=== PATIENT | female | born 1990 | race Hispanic/Latino ===

== ENCOUNTER 2020-01-01 05:21 | Outpatient (CLI) | payer MEDICAID ==
--- NOTE | 2019-12-31 17:10 | Short Stay Summary ---
Short Stay Documentation Date of service: 01/01/20 Narrative H&P: 29y/o @ 13+1 weeks presents for placement of cerclage secondary to a history of incompetent cervix. The patient denies any leakage of fluid or vaginal bleeding. Patient has been reassessed/reevaluated/re-examined. H&P has been reviewed. No interval changes. - History Principal diagnosis: Incompetent cervix Past Medical History: No medical history Past Surgical History: Other (cerclage) Social history: single - Allergies and Medications Current Medications: Allergies diphenhydramine HCl [From Benadryl] Allergy (Severe, Verified 01/22/15 05:32) Hives Home Medications Medication Instructions Recorded Confirmed Last Taken Type Vitamins 200 tab PO QDAY 01/22/15 05/13/16 05/12/16 09:00 History HYDROcodone/APAP 5-325 [[place] 1 each PO Q6HR PRN #30 tablet 05/14/16 Unknown Rx 5/325] Ibuprofen [Motrin] 800 mg PO Q8HR PRN #60 tablet 05/14/16 Unknown Rx - Physical exam General appearance: no acute distress Integumentary: no rash HEENT: Atraumatic Lungs: Clear to auscultation Breasts: deferred Heart: Regular rate Gastrointestinal: normal Female Genitourinary: deferred Rectal Exam: deferred - Brief post op/procedure progress note Date of procedure: 01/01/20 Pre-op diagnosis: Incompetent cervix Post-op diagnosis: same Procedure: Amaro cerclage Anesthesia: regional Surgeon: CHIP FLORES Estimated blood loss: minimal Pathology: none Condition: stable - Hospital course Hospital course: The patient was admitted the day of surgery and underwent placement of a cerclage for incompetent cervix. Please see operative note for details of surgery. - Disposition Condition at discharge: Good - Discharge Diagnoses (1) Incompetence of cervix Status: Acute Short Stay Discharge Plan Activity: other (Pelvic rest for the duration of the ) Diet: regular Additional Instructions: Schedule follow-up in the OB clinic in the next 2 weeks Prescriptions: Indomethacin [Indocin] 25 mg PO Q8H #9 capsule HYDROcodone/APAP 5-325 [[place] 5/325] 1 each PO Q6HR PRN #20 tablet PRN Reason: Pain
[~2020-01-01 05:21] MED LIST: FAMOTIDINE 20 MG/2 ML INJ IV ONE; METOCLOPRAMIDE 10 MG/2 ML INJ IV SCH; ceFAZolin/Water 2 GM/20 ML 2 GM/20 ML SYRINGE IV NR
[2020-01-01] MEDS: LACTATED RINGERS 1,000 ML IV SCH ×2 (06:15→07:07)
[2020-01-01] MEDS ORDERED: ONDANSETRON 4 MG/2 ML INJ IV PRN (06:22)
--- NOTE | 2020-01-01 06:22 | Anesthesia Consultation ---
Anesthesia Consult and Med Hx Date of service: 01/01/20 - Airway Anesthetic Teeth Evaluation: Poor ROM Head & Neck: Adequate Mental/Hyoid Distance: Adequate Mallampati Class: Class III Intubation Access Assessment: Probably Good - Pulmonary Exam CTA: Yes - Cardiac Exam Cardiac Exam: RRR - Pre-Operative Health Status ASA Pre-Surgery Classification: ASA3 Proposed Anesthetic Plan: Spinal - Pulmonary Hx Smoking: No Hx Asthma: No Hx Respiratory Symptoms: No SOB: No COPD: No Home Oxygen Therapy: No Hx Pneumonia: No Hx Sleep Apnea: No - Cardiovascular System Hx Hypertension: No Hx Coronary Artery Disease: No Hx Heart Attack/AMI: No Hx Angina: No Hx Percutaneous Transluminal Coronary Angioplasty (PTCA): No Hx Cardia Arrhythmia: No Hx Pacemaker: No Hx Internal Defibrillator: No Hx Valvular Heart Disease: No Hx Heart Murmur: No Hx Peripheral Vascular Disease: No - Central Nervous System Hx Neuromuscular Disorder: No Hx Seizures: No CVA: No Hx Back Pain: Yes Hx Psychiatric Problems: No - Gastrointestinal Hx Ulcer: No Hx Gastroesophageal Reflux Disease: Yes - Endocrine Hx Renal Disease: No Hx End Stage Renal Disease: No Hx Cirrhosis: No Hx Liver Disease: No Hx Insulin Dependent Diabetes: No Hx Non-Insulin Dependent Diabetes: No Hx Thyroid Disease: No Hx Hypothyroidism: No Hx Hyperthyroidism: No - Hematic Hx Anemia: No Hx Sickle Cell Disease: No - Other Systems Hx Alcohol Use: No Hx Substance Use: No Hx Cancer: No Hx Obesity: Yes
--- NOTE | 2020-01-01 06:22 | Anesthesia Day of Surgery ---
Anesthesia Day of Surgery - Day of Surgery Patient Examined: Yes Patient H&P Reviewed: Yes Patient is NPO: Yes Beta Blockers: No Cardiac Clearance: No Pulmonary Clearance: No Twan's Test: N/A
[2020-01-01 06:57] LABS: Basophils % (Auto) 0.4 % (0.0-1.8); Eosinophils # (Auto) 0.2 K/mm3 (0.0-0.4); Eosinophils % (Auto) 2.2 % (0.0-4.3); Hematocrit 37.1 % (30.3-42.9); Hemoglobin 12.5 gm/dl (10.1-14.3); Lymphocytes # (Auto) 1.8 K/mm3 (1.2-5.4); Lymphocytes % (Auto) 20.1 % (13.4-35.0); Mean Corpuscular HGB Conc 34 % (30-34); Mean Corpuscular Volume 81 fl (79-97); Monocytes # (Auto) 0.5 K/mm3 (0.0-0.8); Monocytes % (Auto) 6.1 % (0.0-7.3); Platelet Count 288 K/mm3 (140-440); Red Blood Count 4.56 M/mm3 (3.65-5.03); Red Cell Distribution Width 13.4 % (13.2-15.2)
[2020-01-01] MEDS ORDERED: FAMOTIDINE 20 MG/2 ML INJ IV ONE (07:15)
[2020-01-01] MEDS ORDERED: [UNRECOGNIZED DRUG - OTHER] ONE (08:19)
[2020-01-01] MEDS ORDERED: ceFAZolin 1 GM VIAL ONE (08:20)
[2020-01-01] MEDS ORDERED: WATER FOR IRRIG STERILE 1,500 ML BOTTLE IR ONE (08:35)
--- NOTE | 2020-01-01 08:41 | Operative Report ---
Operative Report Operative Report: Date of procedure: January 01, 2020 Pre-operative diagnosis: Incompetent cervix; at 13 weeks Post-operative diagnosis: Same as above Procedure name(s): Amaro cerclage Surgeon: Viki Bethea M.D. [employer]: None Estimated blood loss: Minimal Anesthesia: Regional Findings Multiparous cervix Indication: 29-year-old -1-1-1 with a history of incompetent cervix. The patient presents for placement of a Amaro cerclage. Procedure The patient was taken to the operating room and given regional anesthesia without complication. The patient was prepped and draped in a normal sterile fashion. Patient was then placed in high lithotomy position. A sterile bivalve speculum was placed in the patient's vagina. A ring forcep was placed in on the anterior lip of the cervix. The cervix was noted to be closed and multiparous. A #1 Prolene suture was placed at 12 o'clock position on the ectocervix. A circumferential suture was placed through the cervix ending at 12:00. The knot was tied at the 12 o'clock position. There was no evidence of any active bleeding or leakage of fluid at the conclusion of the case. Doptone's were obtained prior and postprocedure.
--- NOTE | 2020-01-01 09:07 | Post Anesthesia Evaluation ---
- Post Anesthesia Evaluation Patient Participated: Yes Airway Patent: Yes Stable Respiratory Function: Yes Nausea/Vomiting: No Temp > 96.8F: Yes Pain Manageable: Yes Adequeate Hydration: Yes Anesthesia Complications: No Block Receding Appropriately: Yes Patient on Ventilator: No
[2020-01-01 09:14] VITALS: BP 115/71
== END 2020-01-01 13:00 | disposition home or self-care (01) ==
LOC: LDOR 05:21 → APU 05:28 → EDSTATUS 07:30 → LDOR 13:00
PROVIDERS: ATTEND Obstetrics & Gynecology
DX: O34.31 Maternal care for cervical incompetence, first trimester (principal); K21.9 Gastro-esophageal reflux disease without esophagitis; E66.9 Obesity, unspecified; Z79.899 Other long term (current) drug therapy; Z87.891 Personal history of nicotine dependence; Z88.8 Allergy status to other drugs, medicaments and biological substances; Z68.42 Body mass index [BMI] 45.0-49.9, adult; Z82.49 Family history of ischemic heart disease and other diseases of the circulatory system
CPT/HCPCS: 36415; 59320; 85025; 86850; 86900; 86901; J0690; J2765; J2790; J7120; J2405

== ENCOUNTER 2020-06-19 12:13 | Inpatient (IN) | payer MEDICAID ==
[2020-06-19] MEDS ORDERED: LACTATED RINGERS 1,000 ML IV SCH (13:00)
[2020-06-19 13:48] LABS: Bilirubin,Urine NEG (Negative); Blood,Urine NEG (Negative); Color,Urine Yellow (Yellow); Mucus,Urine 3+ /HPF; Protein,Urine <15 mg/dL mg/dL (Negative); Urobilinogen,Urine < 2.0 mg/dL (<2.0)
[2020-06-19 14:15] LABS: Hematocrit 31.6 % (30.3-42.9); Hemoglobin 10.8 gm/dl (10.1-14.3); Mean Corpuscular HGB Conc 34 % (30-34); Mean Corpuscular Volume 76 fl (79-97); Platelet Count 317 K/mm3 (140-440); Red Blood Count 4.15 M/mm3 (3.65-5.03); Red Cell Distribution Width 15.1 % (13.2-15.2)
[2020-06-19 14:26] LABS: Alanine Aminotransferase 6 units/L (7-56); Uric Acid 3.4 mg/dL (3.5-7.6)
[2020-06-19] MEDS ORDERED: ePHEDrine SULFATE 50 MG/1 ML INJ IV PRN (15:21)
[2020-06-19] MEDS ORDERED: PROMETHAZINE 25 MG TAB PO PRN (15:21)
[2020-06-19] MEDS ORDERED: ONDANSETRON 4 MG/2 ML INJ IV PRN (15:21)
[2020-06-19] MEDS ORDERED: LIDOCAINE (2%) 20 MG/1 ML VIAL 20 ML MDV INFILTRATI ONE (15:21)
[2020-06-19] MEDS ORDERED: NALOXONE 0.4 MG/1 ML INJ IV PRN (15:21)
[2020-06-19] MEDS ORDERED: TERBUTALINE 1 MG/1 ML INJ SUB-Q PRN (15:21)
[2020-06-19] MEDS ORDERED: MINERAL OIL 30 ML ORAL LIQD PO PRN (15:21)
[2020-06-19] MEDS ORDERED: BUTORPHANOL 2 MG/1 ML INJ IV PRN ×2 (15:21)
[2020-06-19] MEDS ORDERED: ACETAMINOPHEN 325 MG TAB PO PRN (15:21)
[2020-06-19] MEDS ORDERED: fentaNYL 100 MCG/2 ML INJ IV PRN (15:21)
[2020-06-19] MEDS ORDERED: OXYTOCIN 20 UNIT/1000ML DRIP 20 UNITS/1,000 ML BAG IV SCH (16:00)
[2020-06-19] MEDS ORDERED: AMPICILLIN/NS 2 GM/100 ML 2 GM/100 ML BAG IV ONE (16:21)
--- NOTE | 2020-06-19 18:00 | History and Physical Report ---
History of Present Illness Date of examination: 06/19/20 Date of admission: 06/19/20 15:33 Chief complaint: Sent from [facility] for elevated BP History of present illness: Pt is a 29 yo at 37w3d EGA who presents from the [facility] office, where she was found to have elevated BP. She denies SEGURA, LOF, vaginal bleeding, contractions, scotomata, RUQ pain, face/hand swelling. She reports positive movement. She has received care with [facility], co- managed with [facility]. Her course has been complicated by cerclage placement (removed 06/12), morbid obesity, glucose intolerance, and Rh negative status s/p Rhogam injection. She is GBS positive. 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 PULLER History: chlamydia (remote from ), gonorrhea (remote from ) Family/Genetic History: diabetes, hypertension Social history: no significant social history - Obstetrical History Expected Date of Delivery: 07/07/20 (by 12 wk US not c/w LMP) Actual Gestation: 37 Week(s) 3 Day(s) : 5 Para: 1 Hx # Term Pregnancies: 1 Spontaneous Abortions: 3 (one 17 week delivery due to cervical insufficiency) Number of Living Children: 1 Medications and Allergies Allergies Allergy/AdvReac Type Severity Reaction Status Date / Time diphenhydramine HCl Allergy Severe Hives Ver[facility] 01/22/15 05:32 [facility] Home Medications Medication Instructions Recorded Confirmed Last Taken Type Vitamins 200 tab PO QDAY 01/22/15 05/13/16 05/12/16 09:00 History HYDROcodone/APAP 5-325 [[place] 1 each PO Q6HR PRN #30 tablet 05/14/16 Unknown Rx 5/325] Ibuprofen [Motrin] 800 mg PO Q8HR PRN #60 tablet 05/14/16 Unknown Rx HYDROcodone/APAP 5-325 [[place] 1 each PO Q6HR PRN #20 tablet 01/01/20 Unknown Rx 5/325] Indomethacin [Indocin] 25 mg PO Q8H #9 capsule 01/01/20 Unknown Rx Active Meds: Active Medications Acetaminophen (Tylenol) 650 mg PO Q4H PRN PRN Reason: Pain, Mild (1-3) Butorphanol Tartrate (Stadol) 1 mg IV Q2H PRN PRN Reason: Pain, Moderate(4-6) LABOR PAIN Butorphanol Tartrate (Stadol) 2 mg IV Q2H PRN PRN Reason: Pain , Severe (7-10) Ephedrine Sulfate (Ephedrine Sulfate) 10 mg IV Q2M PRN PRN Reason: Hypotension Fentanyl (Sublimaze) 100 mcg IV Q2H PRN PRN Reason: Pain,Severe (7-10) LABOR PAIN Lactated Ringer's (Lactated Ringers) 1,000 mls @ 125 mls/hr IV DIRECT LEYDI Lactated Ringer's (Lactated Ringers) 1,000 mls @ 125 mls/hr IV DIRECT LEYDI Oxytocin/Sodium Chloride (Pitocin/Ns 20 Unit/1000ml Drip) 20 units in 1,000 mls @ 125 mls/hr IV DIRECT LEYDI Ampicillin Sodium (Ampicillin/Ns 1 Gm/50 Ml) 1 gm in 50 mls @ 100 mls/hr IV Q4H LEYDI; Protocol Mineral Oil (Mineral Oil) 30 ml PO QHS PRN PRN Reason: Constipation Naloxone HCl (Naloxone) 0.1 mg IV Q2MIN PRN PRN Reason: Res Rate </= 8 or 02 SAT < 92% Ondansetron HCl (Zofran) 4 mg IV Q8H PRN PRN Reason: Nausea And Vomiting Promethazine HCl (Phenergan) 25 mg PO Q6H PRN PRN Reason: Nausea And Vomiting Terbutaline Sulfate (Brethine) 0.25 mg SUB-Q ONCE PRN PRN Reason: Hyperstimulation/Hypertonicity Review of Systems All systems: negative Genitourinary: no vaginal bleeding, no leakage of fluid, no contractions - Vital Signs Vital signs: Vital Signs Pulse BP 110 H 112/67 05/02/20 12:33 05/02/20 12:33 Temp Pulse Resp BP Pulse Ox 98.3 F 103 H 20 136/82 96 06/19/20 12:52 06/19/20 17:29 06/19/20 12:52 06/19/20 17:17 06/19/20 17:29 - Physical Exam Lungs: Positive: Normal air movement Abdomen: Positive: soft Genitourinary (Female): Positive: normal external genitalia Uterus: Positive: enlarged (gravid, EFW 6lb) Anus/Rectum: Positive: normal perianal skin - Obstetrical FHR: category 1 Uterine Contraction Monitor Mode: External Cervical Dilatation: 0.5 Cervical Effacement Percentage: 0 station: -3 Uterine Contraction Pattern: Absent Results Result Diagrams: 06/19/20 Unknown 06/19/20 Unknown Abnormal lab results 06/19/20 06/19/20 06/19/20 Range/Units 12:00 Unknown Unknown WBC 11.6 H (4.5-11.0) K/mm3 MCV 76 L (79-97) fl MCH 26 L (28-32) pg Creatinine 0.3 L (0.6-1.2) mg/dL Uric Acid 3.4 L (3.5-7.6) mg/dL ALT 6 L (7-56) units/L Urine WBC (Auto) 16.0 H (0.0-6.0) /HPF All other labs normal. Assessment and Plan A 29 yo at 37w2d EGA Gestational hypertension GBS positive, membranes intact Morbid obesity H/o cerclage this , removed last week P: Admit to L&D for induction of labor- Cervidil PIH labs Ampicillin prophylaxis in active labor Closely monitor clinical status Anticipate
[2020-06-19] MEDS ORDERED: AMPICILLIN/NS 1 GM/50 ML 1 GM/50 ML BAG IV SCH (19:23)
[2020-06-19] MEDS ORDERED: DEXMEDETOMIDINE 200 MCG/2 ML VIAL IV ONE (19:37)
[2020-06-19] MEDS ORDERED: DINOPROSTONE 10 MG VAG SUPP VG ONE (20:00)
[2020-06-19 20:12] LABS: Hematocrit 31.1 % (30.3-42.9); Hemoglobin 10.3 gm/dl (10.1-14.3); Mean Corpuscular HGB Conc 33 % (30-34); Mean Corpuscular Volume 77 fl (79-97); Platelet Count 328 K/mm3 (140-440); Red Blood Count 4.06 M/mm3 (3.65-5.03); Red Cell Distribution Width 15.1 % (13.2-15.2)
[2020-06-20] MEDS ORDERED: OXYTOCIN DRIP 30 UNITS/500 ML BAG IV SCH (08:30)
[2020-06-20] MEDS ORDERED: AMPICILLIN/NS 2 GM/100 ML 2 GM/100 ML BAG IV ONE (08:30)
[2020-06-20] MEDS: LACTATED RINGERS 1,000 ML IV SCH (13:02)
[2020-06-20] MEDS: AMPICILLIN/NS 1 GM/50 ML 1 GM/50 ML BAG IV SCH ×2 (13:02→16:48)
--- NOTE | 2020-06-20 17:06 | Progress Note ---
Objective - Vital Signs Latest vital signs: Vital Signs Temp Pulse Resp BP BP Pulse Ox 06/20/20 16:45 98.1 F 06/20/20 16:43 100 H 159/87 06/20/20 16:09 87 161/84 06/20/20 13:10 85 151/66 06/20/20 12:10 93 H 160/71 06/20/20 11:10 93 H 130/71 06/20/20 11:09 98.3 F 91 H 20 130/71 06/20/20 08:50 86 97 06/20/20 08:45 86 97 06/20/20 08:40 89 96 06/20/20 08:35 84 120/68 99 06/20/20 08:30 100 H 98 06/20/20 08:25 95 H 99 06/20/20 08:20 102 H 98 06/20/20 08:15 99 H 99 06/20/20 08:10 85 96 06/20/20 08:05 89 95 06/20/20 08:00 102 H 98 06/20/20 07:55 100 H 98 06/20/20 07:50 101 H 97 06/20/20 07:45 83 97 06/20/20 07:42 96 H 93 06/20/20 07:40 105 H 100 06/20/20 07:35 112 H 97 06/20/20 07:31 98.0 F 103 H 12 142/78 06/20/20 07:20 82 142/78 06/20/20 06:49 82 139/71 06/20/20 06:19 91 H 149/80 06/20/20 05:49 97 H 144/85 06/20/20 05:38 108 H 142/89 06/20/20 05:37 98.9 F 105 H 18 142/89 06/20/20 05:19 90 140/88 06/20/20 04:50 96 H 137/87 06/20/20 04:19 89 144/93 06/20/20 03:49 83 173/92 06/20/20 03:26 98.2 F 18 06/20/20 03:19 83 145/90 06/20/20 02:50 82 164/90 06/20/20 02:19 83 132/76 06/20/20 01:50 89 117/67 06/20/20 01:19 89 110/70 06/20/20 00:51 91 H 115/78 06/20/20 00:19 96 H 124/67 06/19/20 23:30 98.1 F 20 06/19/20 23:19 88 125/62 06/19/20 22:49 110 H 143/101 06/19/20 22:19 103 H 144/82 06/19/20 21:49 99 H 136/78 06/19/20 21:19 90 142/86 06/19/20 18:45 98.1 F 06/19/20 17:29 103 H 96 06/19/20 17:24 107 H 97 06/19/20 17:19 98 H 97 06/19/20 17:18 93 H 94 06/19/20 17:17 95 H 136/82 06/19/20 17:14 109 H 96 06/19/20 17:11 118 H 92 06/19/20 17:09 114 H 95 Intake and Output 06/20/20 06/20/20 06/20/20 06:59 14:59 22:59 Intake Total 76.666 9.3 Balance 76.666 9.3 Intake: IV 76.666 9.3 AMPICILLIN/NS 1 GM/50 ML 50 1 gm In 50 ml @ 100 mls/ hr IV Q4H [facility] Rx#: [id number] PITOCin/NS 30 UNIT/500ML 26.666 9.3 30 units In 500 ml @ 2 mls/hr IV TITR [facility] Rx#: [id number] - Labs Labs: Abnormal lab results 06/19/20 Range/Units 19:30 WBC 13.0 H (4.5-11.0) K/mm3 MCV 77 L (79-97) fl MCH 25 L (28-32) pg
--- NOTE | 2020-06-20 17:06 | Progress Note ---
Assessment and Plan A: IUP at 37w4d Preeclampsia with severe features Morbid Obesity Cervical Incompetence s/p cerclage; removed on 06/12/20 Glucose Intolerance Rh Negative status GBS Positive Undesired Fertility P: Continue induction of labor Ampicillin for GBS prophylaxis Subjective - Subjective Date of service: 06/20/20 Principal diagnosis: Preclampsia with severe features, morbid obesity, cervical incompetence Interval history: Late entry. Pt frustrated with induction process. Otherwise no new complaints. Patient reports: contractions, no new complaints, no loss of fluid, no vaginal bleeding Objective - Vital Signs Vital Signs: Vital Signs - 12hr 06/20/20 06/20/20 06/20/20 05:19 05:37 05:38 Temperature 98.9 F Pulse Rate 90 105 H 108 H Respiratory 18 Rate Blood Pressure 140/88 142/89 Blood Pressure 142/89 [Right] O2 Sat by Pulse Oximetry 06/20/20 06/20/20 06/20/20 05:49 06:19 06:49 Temperature Pulse Rate 97 H 91 H 82 Respiratory Rate Blood Pressure 144/85 149/80 139/71 Blood Pressure [Right] O2 Sat by Pulse Oximetry 06/20/20 06/20/20 06/20/20 07:20 07:31 07:35 Temperature 98.0 F Pulse Rate 82 103 H 112 H Respiratory 12 Rate Blood Pressure 142/78 Blood Pressure 142/78 [Right] O2 Sat by Pulse 97 Oximetry 06/20/20 06/20/20 06/20/20 07:40 07:42 07:45 Temperature Pulse Rate 105 H 96 H 83 Respiratory Rate Blood Pressure Blood Pressure [Right] O2 Sat by Pulse 100 93 97 Oximetry 06/20/20 06/20/20 06/20/20 07:50 07:55 08:00 Temperature Pulse Rate 101 H 100 H 102 H Respiratory Rate Blood Pressure Blood Pressure [Right] O2 Sat by Pulse 97 98 98 Oximetry 06/20/20 06/20/20 06/20/20 08:05 08:10 08:15 Temperature Pulse Rate 89 85 99 H Respiratory Rate Blood Pressure Blood Pressure [Right] O2 Sat by Pulse 95 96 99 Oximetry 06/20/20 06/20/20 06/20/20 08:20 08:25 08:30 Temperature Pulse Rate 102 H 95 H 100 H Respiratory Rate Blood Pressure Blood Pressure [Right] O2 Sat by Pulse 98 99 98 Oximetry 06/20/20 06/20/20 06/20/20 08:35 08:40 08:45 Temperature Pulse Rate 84 89 86 Respiratory Rate Blood Pressure 120/68 Blood Pressure [Right] O2 Sat by Pulse 99 96 97 Oximetry 06/20/20 06/20/20 06/20/20 08:50 11:09 11:10 Temperature 98.3 F Pulse Rate 86 91 H 93 H Respiratory 20 Rate Blood Pressure 130/71 Blood Pressure 130/71 [Right] O2 Sat by Pulse 97 Oximetry 06/20/20 06/20/20 06/20/20 12:10 13:10 16:09 Temperature Pulse Rate 93 H 85 87 Respiratory Rate Blood Pressure 160/71 151/66 161/84 Blood Pressure [Right] O2 Sat by Pulse Oximetry 06/20/20 06/20/20 16:43 16:45 Temperature 98.1 F Pulse Rate 100 H Respiratory Rate Blood Pressure 159/87 Blood Pressure [Right] O2 Sat by Pulse Oximetry - Exam Breasts: deferred Abdomen: Present: soft (obese, gravid ) FHR: auscultation normal Uterine Contraction Monitor Mode: External Cervical Dilatation: 1 Cervical Effacement Percentage: 50 station: -3 Uterine Contraction Pattern: Irregular Uterine Tone Measurement Phase: Resting Uterine Contraction Intensity: Mild Extremities: edema (trace ) - Labs Labs: Abnormal Labs 06/19/20 06/19/20 06/19/20 12:00 19:30 Unknown WBC 13.0 H 11.6 H MCV 77 L 76 L MCH 25 L 26 L Creatinine Uric Acid ALT Urine WBC (Auto) 16.0 H 06/19/20 Unknown WBC MCV MCH Creatinine 0.3 L Uric Acid 3.4 L ALT 6 L Urine WBC (Auto) Laboratory Results - last 24 hr 06/19/20 06/19/20 06/20/20 17:40 19:30 09:51 WBC 13.0 H RBC 4.06 Hgb 10.3 Hct 31.1 MCV 77 L MCH 25 L MCHC 33 RDW 15.1 Plt Count 328 Coronavirus (PCR) Negative Blood Type B NEGATIVE Antibody Screen Negative
[2020-06-20] MEDS ORDERED: ONDANSETRON 4 MG/2 ML INJ IV PRN (20:34)
[2020-06-20] MEDS ORDERED: NalbUPHINE 10 MG/1 ML INJ IV PRN (20:34)
[2020-06-20] MEDS ORDERED: DEXMEDETOMIDINE 200 MCG/2 ML VIAL IV ONE (20:39)
[2020-06-20] MEDS ORDERED: fentaNYL-BUPIV 2 MCG/ML-0.125% 200 MCG/100 ML BAG EPIDURAL SCH (21:00)
--- NOTE | 2020-06-20 21:01 | Anesthesia Consultation ---
Anesthesia Consult and Med Hx Date of service: 06/20/20 - Airway Anesthetic Teeth Evaluation: Good ROM Head & Neck: Adequate Mental/Hyoid Distance: Adequate Mallampati Class: Class III Intubation Access Assessment: Possibly Difficult - Pulmonary Exam CTA: Yes - Cardiac Exam Cardiac Exam: RRR - Pre-Operative Health Status ASA Pre-Surgery Classification: ASA2 Proposed Anesthetic Plan: Epidural - Pulmonary Hx Smoking: No Hx Asthma: No Hx Respiratory Symptoms: No SOB: No COPD: No Hx Pneumonia: No Hx Sleep Apnea: No - Cardiovascular System Hx Hypertension: No Hx Coronary Artery Disease: No Hx Heart Attack/AMI: No Hx Angina: No Hx Percutaneous Transluminal Coronary Angioplasty (PTCA): No Hx Cardia Arrhythmia: No Hx Pacemaker: No Hx Internal Defibrillator: No Hx Valvular Heart Disease: No Hx Heart Murmur: No Hx Peripheral Vascular Disease: No - Central Nervous System Hx Neuromuscular Disorder: No Hx Seizures: No CVA: No Hx Back Pain: Yes Hx Psychiatric Problems: No - Gastrointestinal Hx Ulcer: No Hx Gastroesophageal Reflux Disease: Yes - Endocrine Hx Renal Disease: No Hx End Stage Renal Disease: No Hx Cirrhosis: No Hx Liver Disease: No Hx Insulin Dependent Diabetes: No Hx Non-Insulin Dependent Diabetes: No Hx Thyroid Disease: No Hx Hypothyroidism: No Hx Hyperthyroidism: No - Hematic Hx Anemia: No Hx Sickle Cell Disease: No - Other Systems Hx Alcohol Use: No Hx Substance Use: No Hx Cancer: No Hx Obesity: Yes
--- NOTE | 2020-06-20 21:02 | Progress Note ---
Labor Epidural - Labor Epidural Start Time: 20:43 Stop Time: 20:55 Performed by:: ROMEL RBUIN ([facility]) Procedure: Patient is requesting a laboring epidural for laboring pain. Patient IDed, H&P reviewed, all questions and concerns were answered, and consent was signed. Timeout was performed at bedside. Patient in sitting position. Sterile prep and drape was performed. 3ml of 1% lidocaine skin wheal at L[3]- L [4]. 18-gauge Touhy epidural needle was advanced to loss of resistance with air technique. Negative CSF negative blood. Epidural catheter advanced to [16] centimeters. [-] Aspiration [-] test dose. Sterile dressing applied. Patient tolerated procedure.
[2020-06-21] MEDS: AMPICILLIN/NS 1 GM/50 ML 1 GM/50 ML BAG IV SCH (00:04)
[2020-06-21] MEDS: LACTATED RINGERS 1,000 ML IV SCH (00:25)
--- NOTE | 2020-06-21 01:22 | Event Note ---
Date: 06/21/20 Pt comfortable with epidural. Category II tracing. SVE: /-2. AROM- scant, clear fluid. IUPC placed. Continue to monitor clinical status closely.
[2020-06-21] MEDS ORDERED: METOCLOPRAMIDE 10 MG/2 ML INJ ONE (01:56)
[2020-06-21] MEDS ORDERED: FAMOTIDINE 20 MG/2 ML INJ IV ONE (01:56)
[2020-06-21] MEDS ORDERED: BICITRA ORAL LIQD 30ML ONE (01:56)
[2020-06-21] MEDS ORDERED: KETOROLAC 30 MG/1 ML INJ ONE (02:09)
[2020-06-21] MEDS ORDERED: OXYTOCIN 10 UNIT/1 ML INJ ONE (02:09)
[2020-06-21] MEDS ORDERED: LIDOCAINE 2%/EPINEPHRINE 1:200,000 VIAL (20 ML) INFILTRATI ONE (02:09)
[2020-06-21] MEDS ORDERED: ONDANSETRON 4 MG/2 ML INJ ONE (02:09)
[2020-06-21] MEDS ORDERED: ceFAZolin/STERILE WATER 2 GM/20 ML SYRINGE IV ONE (02:33)
[2020-06-21] MEDS ORDERED: SODIUM CHLORIDE 0.9% IRR 1,500 ML BOTTLE IR ONE (02:33)
[2020-06-21] MEDS ORDERED: PHENYLEPHRINE/NS 1,000 MCG/10 ML SYRINGE (OR USE) IV ONE (02:48)
--- NOTE | 2020-06-21 03:04 | Anesthesia Day of Surgery ---
Anesthesia Day of Surgery - Day of Surgery Patient Examined: Yes Patient H&P Reviewed: Yes Patient is NPO: Yes Beta Blockers: No Cardiac Clearance: No Pulmonary Clearance: No Twan's Test: N/A
[2020-06-21] MEDS ORDERED: fentaNYL 100 MCG/2 ML INJ ONE (03:20)
[2020-06-21] MEDS ORDERED: HYDROmorphone 1 MG/1 ML INJ IV PRN (04:22)
[2020-06-21] MEDS ORDERED: ONDANSETRON 4 MG/2 ML INJ IV PRN (04:22)
[2020-06-21] MEDS ORDERED: PROMETHAZINE 25 MG TAB PO PRN (04:22)
[2020-06-21] MEDS ORDERED: PROMETHAZINE 25 MG RECT SUPP PR PRN (04:22)
--- NOTE | 2020-06-21 04:30 | Procedure Note ---
OB Delivery Note - Delivery Date of Delivery: 06/21/20 Surgeon: BRYAN JOSEPH Estimated blood loss: other (900 mL) - Section Preop diagnosis: nonreassuring FHR tracing, desires sterilization Postop diagnosis: same section procedure: section, primary low transverse, bilateral tubal ligation Disposition: PACU Complications: none Narrative: Please see delivery note. - Infant A at 1 minute: 1 at 5 minutes: 1 Infant Gender: Male (Apgars [birth year] weight 2480g (5lb 0.7 oz) @ 0252 am)
--- NOTE | 2020-06-21 04:31 | Operative Report ---
Operative Report Operative Report: Date of procedure: June 21, 2020 Preoperative diagnosis: 1) IUP at 37w5d 2) Nonreassuring status- re petitive variable decelerations 3) Morbid Obesity BMI 47 4) Gestational Hypertension 5) Undesired Fertility Postoperative diagnosis: Same Procedure: 1) Primary low transverse section 2) Bilateral tubal ligation via modified English method Surgeon: Usha Seymour M.D. Anesthesia: Regional Findings: 1) Viable male , Apgars 1,1,6 and 7, weight 2480g, (5lb 0.7 oz) in cephalic presentation. Occiput posterior position. 2) Very night true knot in the umbilical cord 3) Normal appearing ovaries and tubes Estimated blood loss: 900 mL Urine output: 30 mL, clear at the end of the procedure Drains: Morton to gravity Specimens: Tubal segments, placenta to pathology Complications: Counts correct x 3 Disposition: Stable to PACU Indication for procedure: Pt is a 29 year old female at 37w5d was admitted for induction of labor secondary to gestational hypertension. She progressed to 5 cm, but began to have repetitive variable decelerations. The decision was made to proceed to section. She does not desire future fertility. Operation in Detail: After the risks, benefits, alternatives and complications were explained to the patient she gave informed consent for the procedure. She was subsequently taken to the operating room where regional anesthesia was noted to be adequate. She was then placed in the dorsal supine position with leftward tilt and prepped and draped in a normal sterile fashion. heart tones were noted inthe 110s prior to incision. A timeout was performed. A Pfannenstiel skin incision was made with the knife and carried down to the layer of the fascia with the Bovie. The fascia was incised in the midline and the fascial incision was extended bilaterally with the Bovie. The fascial incision was then stretched. The rectus muscles were then in the midline and partially transected for adequate visualization. The peritoneum was then entered sharply between two Arline clamps. The peritoneal incision was extended with good visualization of the bladder. The peritoneal incision was then stretched. An Eamon retractor was placed. The bladder blade was placed. The vesicouterine peritoneum was grasped with smooth pick ups and incised with Metzenbaum scissors. A bladder flap was created and the bladder blade was replaced. A transverse incision was made with a knife in the lower uterine segment. The hysterotomy was stretched. The head was delivered without difficulty followed by delivery of the shoulders and body. was bulb suctioned at delivery. The cord was clamped and cut and the was handed to NICU staff in attendance. Cord blood was collected. A tight true knot was noted in the umbilical cord. The placenta was then delivered manually. The uterus was exteriorized and cleared of all clots and debris. The hysterotomy was then reapproximated with 0 Vicryl in a running locked fashion. A second suture was used in an imbricated fashion. An extension into the lower uterine segment was reapproximated with 0 Vicryl in a running locked fashion. The hysterotomy was inspected and hemostasis was noted. Attention was then turned to the tubal ligation. The left tube was identified, grasped with a wanda and followed out to the fimbriae. The tube was suture ligated via a modified English method using 0 chromic suture. The intervening tubal segment was sent to pathology. The right tube was then identified, followed out to the fimbriae and suture ligated via a modified English method using 0 chromic suture. Hemostasis was noted. Surgicel was placed over the t ubal ostia bilaterally. The gutters were irrigated and cleared of all clots and debris. The hysterotomy was again inspected and noted to be hemostatic. Surgicel was placed over the hysterotomy. The uterus was returned to the peritoneal cavity. The Eamon retractor was removed. The peritoneum was reapproximated with 2-0 Vicryl in a running fashion incorporating the rectus muscles. Surgicel was placed over the rectus muscles. The fascia was reapproximated with 0-Vicryl in a running fashion. The subcutaneous tissue was reapproximated with 3-0 Vicryl in a running fashion. The skin was reapproximated with 4-0 Vicryl in a subcuticular fashion. The incision was then covered with steristrips and a pressure dressing. The procedure was then ended. The patient tolerated the procedure well and was taken to the PACU in stable condition. All instrument, lap, and needle counts were correct 3.
[2020-06-21] MEDS ORDERED: BICITRA ORAL LIQD 30ML PO ONE (05:59)
[2020-06-21] MEDS ORDERED: METOCLOPRAMIDE 10 MG/2 ML INJ IV NR (06:00)
[2020-06-21] MEDS ORDERED: LANOLIN/ZINC/DIMETHICONE (LANSINOH) 7 GM TP PRN (06:19)
[2020-06-21] MEDS ORDERED: MORPHINE 4 MG/1 ML INJ IV PRN (06:19)
[2020-06-21] MEDS ORDERED: OXYTOCIN 20 UNIT/1000ML DRIP 20 UNITS/1,000 ML BAG IV SCH (06:19)
[2020-06-21] MEDS ORDERED: NALOXONE 0.4 MG/1 ML INJ IV PRN (06:19)
[2020-06-21] MEDS ORDERED: WITCH HAZEL/ GLYCERIN PAD TP PRN (06:19)
[2020-06-21] MEDS ORDERED: D5W/LACTATED RINGERS 1,000 ML IV SCH (06:19)
[2020-06-21] MEDS ORDERED: SIMETHICONE 80 MG CHEW TAB PO PRN (06:19)
[2020-06-21] MEDS: KETOROLAC 30 MG/1 ML INJ IV SCH ×3 (07:17→18:28)
[2020-06-21] MEDS: FERROUS SULFATE 325 MG TAB PO SCH (09:21)
[2020-06-21] MEDS: FAMOTIDINE 20 MG/2 ML INJ IV SCH ×2 (09:21→22:03)
[2020-06-21] MEDS: ceFAZolin/NS 1 GM/50 ML 1 GM/50 ML BAG IV SCH ×2 (09:21→18:28)
[2020-06-21] MEDS: oxyCODONE /ACETAMINOPHEN 5-325MG TAB PO PRN ×3 (09:38→22:01)
[2020-06-21 19:21] LABS: Hematocrit 25.9 % (30.3-42.9); Hemoglobin 8.4 gm/dl (10.1-14.3)
[2020-06-22] MEDS: KETOROLAC 30 MG/1 ML INJ IV SCH (01:05)
[2020-06-22] MEDS: oxyCODONE /ACETAMINOPHEN 5-325MG TAB PO PRN ×3 (04:51→17:12)
[2020-06-22] MEDS ORDERED: MEASLES, MUMPS & RUBELLA 12,500 UNIT/0.5 ML VACCINE SUB-Q ONE (06:00)
[2020-06-22] MEDS ORDERED: DIPHtheria,PERTUSSIS(ACELL),TETANUS VACCINE/PF 0.5 ML VIAL IM ONE (06:00)
--- NOTE | 2020-06-22 08:29 | Progress Note ---
Assessment and Plan A: POD#1 s/p primary section for gestational hypertension at term Morbid Obesity P: Continue routine postop care. Monitor for progression to preeclampsia and need for magnesium sulfate. Subjective - Subjective Date of service: 06/22/20 Principal diagnosis: Gestational HTN , morbid obesity, cervical incompetence Interval history: No overnight events. Baby doing well in NICU. + flatus. Patient reports: appetite normal, voiding normally, pain well controlled, flatus, ambulating normally, no bowel movement [place]: doing well, in NICU Objective - Vital Signs Latest vital signs: Vital Signs Temp Pulse Resp BP BP Pulse Ox 06/22/20 05:53 86 138/63 96 06/22/20 01:00 98.3 F 92 H 20 137/64 98 06/21/20 21:25 98.3 F 99 H 20 144/75 98 Intake and Output 06/21/20 06/22/20 06/22/20 22:59 06:59 14:59 Intake Total 360 Output Total 1000 400 Balance -1000 -40 Intake: Oral 360 Output: Urine 1000 400 Indwelling Catheter 400 Void 600 400 Other: Total, Intake Amount 120 Total, Output Amount 300 400 # Voids Void 2 1 - Exam Breasts: Present: deferred Abdomen: Present: soft (obese) Uterus: Present: fundal height at umbilicus Extremities: Present: edema (trace) Incision: Present: dressed - Labs Labs: Abnormal lab results 06/21/20 Range/Units 18:42 Hgb 8.4 L (10.1-14.3) gm/dl Hct 25.9 L (30.3-42.9) %
[2020-06-22] MEDS: FERROUS SULFATE 325 MG TAB PO SCH (11:22)
[2020-06-22] MEDS: FAMOTIDINE 20 MG/2 ML INJ IV SCH ×2 (11:22→21:27)
[2020-06-23] MEDS: oxyCODONE /ACETAMINOPHEN 5-325MG TAB PO PRN (00:54)
[2020-06-23] MEDS: FERROUS SULFATE 325 MG TAB PO SCH (09:34)
[2020-06-23] MEDS: MAGNESIUM HYDROXIDE (MOM) ORAL LIQD UDC PO SCH (09:35)
[2020-06-23] MEDS: FAMOTIDINE 20 MG/2 ML INJ IV SCH ×2 (09:35→21:15)
[2020-06-23] MEDS: IBUPROFEN 800 MG TAB PO PRN ×2 (09:36→21:15)
--- NOTE | 2020-06-23 10:15 | Progress Note ---
Assessment and Plan A: POD#2 s/p primary section Preeclampsia with severe features Morbid Obesity P: Transfer to labor and delivery for magnesium sulfate for seizure prophylaxis Continue routine postop care. Subjective - Subjective Date of service: 06/23/20 Principal diagnosis: Preeclampsia with severe features , morbid obesity, cervical incompetence Interval history: Pt with blood pressures in the severe range overnight. Denies headache, blurry vision, scotomata presently. Otherwise no complaints. Patient reports: appetite normal, voiding normally, pain well controlled, flat us, ambulating normally, no bowel movement : in NICU Objective - Vital Signs Latest vital signs: Vital Signs Temp Pulse Resp BP BP Pulse Ox 06/23/20 08:32 98.1 F 95 H 20 145/79 06/23/20 01:50 93 H 149/85 06/23/20 01:14 98.2 F 96 H 20 161/90 99 Intake and Output 06/22/20 06/23/20 06/23/20 22:59 06:59 14:59 Intake Total 600 240 240 Balance 600 240 240 Intake: Oral 240 240 Intake, Free Water 360 240 Other: Total, Intake Amount 240 240 # Voids Void 2 1 - Exam Breasts: Present: deferred Abdomen: Present: soft (obese ) Uterus: Present: fundal height below umbilicus Extremities: Present: edema (trace) Incision: Present: intact
[2020-06-23] MEDS ORDERED: hydrALAZINE 20 MG/1 ML INJ IV PRN (15:19)
[2020-06-23] MEDS ORDERED: MAGNESIUM SULFATE 4 GM/100 ML BAG IV ONE (15:19)
[2020-06-23] MEDS ORDERED: MAGNESIUM SULFATE 40GM/1000ML 40 GM/1,000 ML BAG IV ONE (15:24)
[2020-06-23] MEDS ORDERED: CALCIUM GLUCONATE 1000 MG/10 ML INJ IV PRN (15:30)
[2020-06-23] MEDS: LACTATED RINGERS 1,000 ML IV SCH (15:47)
[2020-06-23] MEDS: MAGNESIUM SULFATE 40GM/1000ML 40 GM/1,000 ML BAG IV SCH (16:22)
[2020-06-24] MEDS: MAGNESIUM HYDROXIDE (MOM) ORAL LIQD UDC PO SCH ×5 (00:38→15:26)
[2020-06-24] MEDS: LACTATED RINGERS 1,000 ML IV SCH (05:10)
[2020-06-24] MEDS: IBUPROFEN 800 MG TAB PO PRN ×2 (05:38→11:12)
--- NOTE | 2020-06-24 08:01 | Progress Note ---
Assessment and Plan - Patient Problems (1) Preeclampsia Current Visit: Yes Status: Acute Plan to address problem: Patient doing well Subjective - Subjective Date of service: 06/24/20 Principal diagnosis: Preeclampsia with severe features , morbid obesity, cervical incompetence Interval history: Patient without any significant complaints. She is scheduled to complete her magnesium sulfate therapy this afternoon. She states that her pain is well controlled. Patient reports: appetite normal, pain well controlled : in NICU Objective - Vital Signs Latest vital signs: Vital Signs Temp Pulse Resp BP BP BP 06/24/20 07:41 90 143/71 06/24/20 07:10 97.7 F 86 20 141/66 06/24/20 06:41 82 129/68 06/24/20 06:11 78 146/71 06/24/20 05:41 84 140/67 06/24/20 05:11 83 136/71 06/24/20 04:41 82 137/64 06/24/20 04:11 86 155/72 06/24/20 03:41 90 142/68 06/24/20 03:11 112 H 136/88 06/24/20 02:41 91 H 136/63 06/24/20 02:11 111 H 161/95 06/24/20 01:40 103 H 157/79 06/24/20 01:25 96 H 149/65 06/24/20 01:10 99 H 140/63 06/24/20 00:55 113 H 147/74 06/24/20 00:39 102 H 142/79 06/24/20 00:24 106 H 144/82 06/24/20 00:09 109 H 138/80 06/23/20 23:55 103 H 137/77 06/23/20 23:39 103 H 134/60 06/23/20 23:24 99 H 125/60 06/23/20 23:09 101 H 116/57 06/23/20 22:54 103 H 127/59 06/23/20 22:39 110 H 130/60 06/23/20 22:24 114 H 130/64 06/23/20 22:10 108 H 132/60 06/23/20 21:54 108 H 140/74 06/23/20 21:39 109 H 138/69 06/23/20 21:24 109 H 134/62 06/23/20 21:09 108 H 141/64 06/23/20 20:54 107 H 133/63 06/23/20 20:39 109 H 139/71 06/23/20 20:24 113 H 146/72 06/23/20 20:09 111 H 146/79 06/23/20 19:54 112 H 145/82 06/23/20 19:39 107 H 142/72 06/23/20 19:24 105 H 139/77 06/23/20 19:16 97.5 F L 18 06/23/20 19:09 109 H 142/69 06/23/20 18:54 101 H 140/65 06/23/20 18:39 109 H 147/70 06/23/20 18:24 110 H 148/69 06/23/20 18:09 103 H 158/74 06/23/20 17:55 106 H 158/96 06/23/20 17:40 104 H 150/67 06/23/20 17:25 95 H 138/94 06/23/20 17:09 95 H 145/66 06/23/20 16:54 96 H 137/74 06/23/20 16:51 97.7 F 95 H 138/94 06/23/20 16:39 94 H 143/73 06/23/20 16:24 101 H 145/84 06/23/20 16:10 102 H 140/81 06/23/20 08:32 98.1 F 95 H 20 145/79 Intake and Output 06/23/20 06/24/20 06/24/20 22:59 06:59 14:59 Intake Total 1000 Output Total 900 2700 Balance -900 -1700 Intake: IV 1000 Lactated Ringers 1,000 ml 1000 @ 125 mls/hr IV DIRECT [facility] Rx#:[id number] Output: Urine 900 2700 Indwelling Catheter 900 2700 Other: Total, Output Amount 900 800 - Exam Abdomen: Present: normal appearance, soft Incision: Present: dressed - Labs Labs: Abnormal lab results 06/24/20 06/24/20 Range/Units 00:30 05:55 Magnesium 4.50 H 4.80 H (1.7-2.3) mg/dL
[2020-06-24] MEDS: FERROUS SULFATE 325 MG TAB PO SCH (11:00)
[2020-06-24] MEDS: FAMOTIDINE 20 MG/2 ML INJ IV SCH ×2 (11:00→21:56)
[2020-06-24] MEDS: MAGNESIUM SULFATE 40GM/1000ML 40 GM/1,000 ML BAG IV SCH (12:34)
[2020-06-25] MEDS: oxyCODONE /ACETAMINOPHEN 5-325MG TAB PO PRN ×2 (01:06→09:50)
[2020-06-25] MEDS: MAGNESIUM HYDROXIDE (MOM) ORAL LIQD UDC PO SCH (03:16)
--- NOTE | 2020-06-25 08:29 | Progress Note ---
Assessment and Plan A POD2 s/p pLTCS Preeclampsia with severe features, s/p mag sulfate Vital signs presently stable Acute on chronic anemia due to and blood loss P: Ferrous sulfate supplementation Discharge to home today with close clinical follow up Subjective - Subjective Date of service: 06/25/20 Principal diagnosis: Preeclampsia with severe features , morbid obesity, cervical incompetence Interval history: POD2 s/p pLTCS, preeclampsia with severe features s/p mag sulfate Patient reports: appetite normal, voiding normally, pain well controlled, flatus, bowel movement, ambulating normally : doing well, bottle feeding Objective - Vital Signs Latest vital signs: Vital Signs Temp Pulse Resp BP Pulse Ox 06/25/20 05:38 67 138/75 95 06/25/20 00:45 98.0 F 83 20 124/55 99 06/24/20 20:37 86 146/69 97 06/24/20 17:34 98.7 F 83 16 150/72 97 06/24/20 17:11 86 155/71 06/24/20 15:41 85 142/85 06/24/20 15:36 98.3 F 20 06/24/20 15:11 79 126/61 06/24/20 14:41 78 135/66 06/24/20 14:11 80 129/71 06/24/20 13:46 97.9 F 18 06/24/20 13:41 93 H 154/80 06/24/20 13:11 91 H 140/78 06/24/20 12:41 81 145/74 06/24/20 12:11 82 131/74 06/24/20 11:41 85 142/76 06/24/20 11:18 97.9 F 18 06/24/20 11:12 18 06/24/20 11:11 93 H 142/78 06/24/20 10:41 85 143/75 06/24/20 10:11 93 H 135/63 06/24/20 09:41 94 H 134/73 06/24/20 09:19 97.8 F 06/24/20 09:11 88 140/71 06/24/20 08:41 92 H 150/74 Intake and Output 06/24/20 06/25/20 06/25/20 23:59 07:59 15:59 Intake Total 480 Balance 480 Intake: Oral 480 Other: Total, Intake Amount 240 # Voids Void 1 # Bowel Movements 1 - Exam Lungs: Present: Normal air movement Abdomen: Present: soft. Absent: distention Uterus: Present: firm, fundal height below umbilicus. Absent: bogginess Extremities: Present: normal Incision: Present: normal, dry, intact - Labs Labs: Abnormal lab results 06/24/20 Range/Units 13:05 Magnesium 5.20 H (1.7-2.3) mg/dL
--- NOTE | 2020-06-25 08:32 | Discharge Summary ---
Providers - Providers Date of Admission: 06/19/20 15:33 Date of discharge: 06/25/20 Attending physician: CHIP FLORES Primary care physician: CHIP FLORES Hospitalization Reason for admission: induction of labor (for gestational hypertension), IUP at term Delivery: Procedure: bilateral tubal ligation, primary low transverse Incision: normal, dry, intact Other procedures: none complications: other (preeclampsia with severe features) Discharge diagnosis: IUP at term delivered baby: male Hospital course: Pt arrived with elevated BP and was admitted for gestational hypertension. She progressed to 5cm dilatation and developed non-reassuring status. She underwent a primary LTCS and BTL. Apgars , presently doing well. She then developed severe range BP and received magnesium sulfate infusion x24 hours. She met discharge criteria on POD2 and will follow up at [facility]. Condition at discharge: Good Disposition: DC-[id number] TO HOME OR SELFCARE Plan - Discharge Medications Prescriptions: Docusate Sodium [Colace] 100 mg PO BID PRN #60 capsule PRN Reason: Constipation Ferrous Sulfate [Feosol 325 MG tab] 325 mg PO BID #60 tablet Ibuprofen [Motrin] 800 mg PO Q8HR PRN #30 tablet PRN Reason: Pain, Moderate (4-6) oxyCODONE /ACETAMINOPHEN [Percocet 5/325] 1 tab PO Q6HR PRN #40 tablet PRN Reason: Pain - Provider Discharge Summary Activity: routine, no sex for 6 weeks, no heavy lifting 4 weeks, no strenuous exercise Diet: routine Instructions: routine Additional instructions: [] Smoking cessation referral if applicable(refer to patient education folder for contact #) [] Refer to [facility] Booklet Call your doctor immediately for: * Fever > 100.5 * Heavy vaginal bleeding ( >1 pad per hour) * Severe persistent headache * Shortness of breath * Reddened, hot, painful area to leg or breast * Drainage or odor from incision. * Keep incision clean and dry at all times and follow doctor's instructions regarding bathing/showering - Follow up plan Follow up: BRYAN JOSEPH MD [Staff Physician] - 7 Days
[2020-06-25] MEDS: FAMOTIDINE 20 MG/2 ML INJ IV SCH (09:50)
[2020-06-25] MEDS: FERROUS SULFATE 325 MG TAB PO SCH (09:50)
[2020-06-25 12:27] VITALS: BP 143/80
== END 2020-06-25 12:30 | disposition home or self-care (01) | DRG 765 ==
LOC: TRG 12:13 → APU 12:16 → TRG 15:32 → APU 15:33 → LD 18:38 → OB 06-21 06:10 → LD 06-23 15:02 → OB 06-24 17:20
PROVIDERS: ADMIT Obstetrics & Gynecology; ATTEND Obstetrics & Gynecology
PROC: 3E0P7VZ Introduction of Hormone into Female Reproductive, Via Natural or Artificial Opening (ICD-10-PCS; 2020-06-19)
PROC: 3E0R3BZ Introduction of Anesthetic Agent into Spinal Canal, Percutaneous Approach (ICD-10-PCS; 2020-06-20)
PROC: 00HU33Z Insertion of Infusion Device into Spinal Canal, Percutaneous Approach (ICD-10-PCS; 2020-06-20)
PROC: 10D00Z1 Extraction of Products of Conception, Low, Open Approach (ICD-10-PCS; principal; 2020-06-21)
PROC: 0UB70ZZ Excision of Bilateral Fallopian Tubes, Open Approach (ICD-10-PCS; 2020-06-21)
PROC: 10907ZC Drainage of Amniotic Fluid, Therapeutic from Products of Conception, Via Natural or Artificial Opening (ICD-10-PCS; 2020-06-21)
PROC: 10H07YZ Insertion of Other Device into Products of Conception, Via Natural or Artificial Opening (ICD-10-PCS; 2020-06-21)
PROC: 3E0234Z Introduction of Serum, Toxoid and Vaccine into Muscle, Percutaneous Approach (ICD-10-PCS; 2020-06-22)
DX: O14.14 Severe pre-eclampsia complicating childbirth (principal); D62 Acute posthemorrhagic anemia; O76 Abnormality in fetal heart rate and rhythm complicating labor and delivery; O99.214 Obesity complicating childbirth; E66.01 Morbid (severe) obesity due to excess calories; Z37.0 Single live birth; Z88.8 Allergy status to other drugs, medicaments and biological substances; O99.824 Streptococcus B carrier state complicating childbirth; E74.39 Other disorders of intestinal carbohydrate absorption; O99.284 Endocrine, nutritional and metabolic diseases complicating childbirth; O90.81 Anemia of the puerperium; Z3A.37 37 weeks gestation of pregnancy; Z23 Encounter for immunization; Z20.828 Contact with and (suspected) exposure to other viral communicable diseases; Z30.2 Encounter for sterilization
CPT/HCPCS: 36415; 81001; 82565; 83615; 83735; 84450; 84460; 84550; 85014; 85018; 85027; 86850; 86900; 86901; 87086; 88302; 88307; G0378; J0290; J0595; J0690; J1885; J2370; J2405; J2590; J2765; J3010; J3475; J3490; J7120; J7121; Q0169; U0003-CS

== ENCOUNTER 2021-03-06 02:17 | Emergency (ER) | payer MEDICAID ==
[2021-03-06 03:15] LABS: HCG Qualitative,Urine Negative (Negative)
[2021-03-06 03:16] LABS: Bilirubin,Urine NEG (Negative); Blood,Urine NEG (Negative); Color,Urine Yellow (Yellow); Mucus,Urine FEW /HPF; Protein,Urine <15 mg/dL mg/dL (Negative); Urobilinogen,Urine < 2.0 mg/dL (<2.0)
--- NOTE | 2021-03-06 03:16 | Event Note ---
ED Screening Note Date of service: 03/06/21 Time: 02:35 ED Screening Note: Patient is a 30-year-old white female with no past medical history presents to the ED with complaint of acute onset persistent severe left lower quadrant pain that radiates to the left flank with urinary frequency and urgency for the last 2 days, worse in the last 12 hours. Patient states that the pain has been constant and persistent, sharp with occasional cramping. Patient denies nausea, vomiting, diarrhea, dysuria, vaginal bleeding, vaginal discharge, traumatic injury, fall, constipation, cough, low back pain, fever, chills, chest pain or shortness of breath. This initial assessment/diagnostic orders/clinical plan/treatment(s) is/are subject to change based on patients health status, clinical progression and re- assessment by fellow clinical providers in the ED. Further treatment and workup at subsequent clinical providers discretion. Patient/guardian urged not to elope from the ED as their condition may be serious if not clinically assessed and managed. Initial orders include: CBC, CMP, UA, urine hCG, lipase,
[2021-03-06 04:40] LABS: Basophils % (Auto) 0.1 % (0.0-1.8); Eosinophils # (Auto) 0.1 K/mm3 (0.0-0.4); Eosinophils % (Auto) 0.3 % (0.0-4.3); Hematocrit 35.6 % (30.3-42.9); Hemoglobin 11.6 gm/dl (10.1-14.3); Lymphocytes # (Auto) 1.6 K/mm3 (1.2-5.4); Lymphocytes % (Auto) 9.5 % (13.4-35.0); Mean Corpuscular HGB Conc 33 % (30-34); Mean Corpuscular Volume 75 fl (79-97); Monocytes # (Auto) 0.6 K/mm3 (0.0-0.8); Monocytes % (Auto) 3.6 % (0.0-7.3); Platelet Count 370 K/mm3 (140-440); Red Blood Count 4.76 M/mm3 (3.65-5.03); Red Cell Distribution Width 15.1 % (13.2-15.2)
[2021-03-06 05:01] LABS: Alanine Aminotransferase 17 units/L (7-56); Albumin 4.4 g/dL (3.9-5); Blood Urea Nitrogen 14 mg/dL (7-17); Calcium 9.1 mg/dL (8.4-10.2); Hemolysis Index 0
[2021-03-06 05:02] LABS: BUN/Creatinine Ratio 20
--- NOTE | 2021-03-06 06:59 | Cat Scan Report ---
CT ABDOMEN AND PELVIS WITH CONTRAST INDICATION / CLINICAL INFORMATION: Pt complains of L.L.Q. abdominal pain. TECHNIQUE: Axial CT images were obtained through the abdomen and pelvis after 100 cc Omnipaque [address] scans at this location are performed using CT dose reduction for ALARA by means of automated exposure control. COMPARISON: None available. FINDINGS: LOWER CHEST: No significant abnormality. LIVER: No significant abnormality. GALLBLADDER: No significant abnormality. BILE DUCTS: No significant abnormality. PANCREAS: No significant abnormality. SPLEEN: No significant abnormality. ADRENALS: No significant abnormality. RIGHT KIDNEY / URETER: No significant abnormality. LEFT KIDNEY / URETER: A 4 mm stone is seen along the distal third of the left ureter just above the l eft hip with secondary mild hydroureteronephrosis and mild left perinephric fat stranding. No other s ignificant abnormality. STOMACH / SMALL BOWEL: No significant abnormality. COLON: No significant abnormality. APPENDIX: No significant abnormality. PERITONEUM: No free fluid. No free air. No fluid collection. LYMPH NODES: No significant adenopathy. AORTA / ARTERIES: No significant abnormality. IVC / VEINS: No significant abnormality. URINARY BLADDER: No significant abnormality. REPRODUCTIVE ORGANS: No significant abnormality. ADDITIONAL FINDINGS: None. SKELETAL SYSTEM: No significant abnormality. IMPRESSION: Mildly obstructive 4 mm distal left ureteral stone. Signer Name: Herson Riddle MD Signed: 03/06/2021 6:55 AM Workstation Name: [id number]
--- NOTE | 2021-03-06 08:12 | Emergency Department Report ---
ED General Adult HPI - General Chief complaint: Abdominal Pain Stated complaint: ABDOMINAL PAIN/BACK PAIN Time Seen by Provider: 03/06/21 08:06 Source: patient Mode of arrival: Ambulatory Limitations: No Limitations - History of Present Illness Initial comments: Patient is a 30-year-old white female with no past medical history presents to the ED with complaint of acute onset persistent severe left lower quadrant pain that radiates to the left flank with urinary frequency and urgency for the last 2 days, worse in the last 12 hours. Patient states that the pain has been constant and persistent, sharp with occasional cramping. Patient denies nausea, vomiting, diarrhea, vaginal bleeding, vaginal discharge, traumatic injury, fall, constipation, cough, low back pain, fever, chills, chest pain or shortness of breath. She states there is mild dysuria without hematuria -: Sudden Severity scale (0 -10): 10 Quality: constant - Related Data Home Medications Medication Instructions Recorded Confirmed Last Taken Vitamins 200 tab PO QDAY 01/22/15 06/19/20 06/19/20 Previous Rx's Medication Instructions Recorded Last Taken Type HYDROcodone/APAP 5-325 [[place] 1 each PO Q6HR PRN #30 tablet 05/14/16 Unknown Rx 5/325] Ibuprofen [Motrin] 800 mg PO Q8HR PRN #60 tablet 05/14/16 Unknown Rx HYDROcodone/APAP 5-325 [[place] 1 each PO Q6HR PRN #20 tablet 01/01/20 Unknown Rx 5/325] Indomethacin [Indocin] 25 mg PO Q8H #9 capsule 01/01/20 Unknown Rx Docusate Sodium [Colace] 100 mg PO BID PRN #60 capsule 06/23/20 Unknown Rx Ferrous Sulfate [Feosol 325 MG tab] 325 mg PO BID #60 tablet 06/23/20 Unknown Rx Ibuprofen [Motrin] 800 mg PO Q8HR PRN #30 tablet 06/23/20 Unknown Rx oxyCODONE /ACETAMINOPHEN [Percocet 1 tab PO Q6HR PRN #40 tablet 06/23/20 Unknown Rx 5/325] HYDROcodone/APAP 10-325 [[place] 1 each PO Q6HR PRN #10 tablet 03/06/21 Unknown Rx 10-325 mg TAB] Ondansetron [Zofran Odt] 4 mg PO Q8HR PRN #15 tab.rapdis 03/06/21 Unknown Rx Tamsulosin [Flomax] 0.4 mg PO QDAY 3 Days #3 cap 03/06/21 Unknown Rx Allergies Allergy/AdvReac Type Severity Reaction Status Date / Time diphenhydramine HCl Allergy Severe Hives Verified 01/22/15 05:32 [From Benadryl] ED Review of Systems ROS: Stated complaint: ABDOMINAL PAIN/BACK PAIN Other details as noted in HPI Constitutional: denies: chills, diaphoresis, fever, malaise, weakness Cardiovascular: denies: chest pain Gastrointestinal: abdominal pain, nausea. denies: vomiting Genitourinary: as per HPI Hematological/Lymphatic: denies: swollen glands ED Past Medical Hx - Past Medical History Previous Medical History?: Yes Hx Hypertension: No Hx Heart Attack/AMI: No Hx Congestive Heart Failure: No Hx Diabetes: No Hx Deep Vein Thrombosis: No Hx Liver Disease: No Hx Renal Disease: No Hx Sickle Cell Disease: No Hx Seizures: No Hx Asthma: No Hx COPD: No Hx HIV: No Additional medical history: Vaginal delivery 05-13-16 - Surgical History Past Surgical History?: Yes Hx Pacemaker: No Hx Internal Defibrillator: No Additional Surgical History: cevical cerclage - Social History Smoking Status: Former Smoker - Medications Home Medications: Home Medications Medication Instructions Recorded Confirmed Last Taken Type Vitamins 200 tab PO QDAY 01/22/15 06/19/20 06/19/20 History HYDROcodone/APAP 5-325 [[place] 1 each PO Q6HR PRN #30 tablet 05/14/16 06/19/20 Unknown Rx 5/325] Ibuprofen [Motrin] 800 mg PO Q8HR PRN #60 tablet 05/14/16 06/19/20 Unknown Rx HYDROcodone/APAP 5-325 [[place] 1 each PO Q6HR PRN #20 tablet 01/01/20 06/19/20 Unknown Rx 5/325] Indomethacin [Indocin] 25 mg PO Q8H #9 capsule 01/01/20 06/19/20 Unknown Rx Docusate Sodium [Colace] 100 mg PO BID PRN #60 capsule 06/23/20 Unknown Rx Ferrous Sulfate [Feosol 325 MG tab] 325 mg PO BID #60 tablet 06/23/20 Unknown Rx Ibuprofen [Motrin] 800 mg PO Q8HR PRN #30 tablet 06/23/20 Unknown Rx oxyCODONE /ACETAMINOPHEN [Percocet 1 tab PO Q6HR PRN #40 tablet 06/23/20 Unknown Rx 5/325] HYDROcodone/APAP 10-325 [[place] 1 each PO Q6HR PRN #10 tablet 03/06/21 Unknown Rx 10-325 mg TAB] Ondansetron [Zofran Odt] 4 mg PO Q8HR PRN #15 tab.rapdis 03/06/21 Unknown Rx Tamsulosin [Flomax] 0.4 mg PO QDAY 3 Days #3 cap 03/06/21 Unknown Rx ED Physical Exam - General Limitations: No Limitations General appearance: alert, in no apparent distress, obese - Head Head exam: Present: atraumatic, normocephalic - Eye Eye exam: Present: normal appearance - Respiratory Respiratory exam: Present: normal lung sounds bilaterally. Absent: respiratory distress - Cardiovascular Cardiovascular Exam: Present: regular rate - GI/Abdominal GI/Abdominal exam: Present: soft. Absent: distended, tenderness, guarding, rebound - Extremities Exam Extremities exam: Present: full ROM - Back Exam Back exam: Present: normal inspection - Neurological Exam Neurological exam: Present: alert, oriented X3 - Psychiatric Psychiatric exam: Present: normal affect, normal mood - Skin Skin exam: Present: warm, dry, intact, normal color. Absent: rash ED Course Vital Signs 03/06/21 02:41 Temperature 98.3 F Pulse Rate 79 Respiratory 18 Rate Blood Pressure 191/100 O2 Sat by Pulse 98 Oximetry ED Medical Decision Making - Lab Data Result diagrams: 03/06/21 04:04 03/06/21 04:04 - Radiology Data Radiology results: report reviewed CT ABDOMEN AND PELVIS WITH CONTRAST INDICATION / CLINICAL INFORMATION: Pt complains of L.L.Q. abdominal pain. TECHNIQUE: Axial CT images were obtained through the abdomen and pelvis after 100 cc Omnipaque [address] scans at this location are performed using CT dose reduction for ALARA by means of automated exposure control. COMPARISON: None available. FINDINGS: LOWER CHEST: No significant abnormality. LIVER: No significant abnormality. GALLBLADDER: No significant abnormality. BILE DUCTS: No significant abnormality. PANCREAS: No significant abnormality. SPLEEN: No significant abnormality. ADRENALS: No significant abnormality. RIGHT KIDNEY / URETER: No significant abnormality. LEFT KIDNEY / URETER: A 4 mm stone is seen along the distal third of the left ureter just above the left hip with secondary mild hydroureteronephrosis and mild left perinephric fat stranding. No other significant abnormality. STOMACH / SMALL BOWEL: No significant abnormality. COLON: No significant abnormality. APPENDIX: No significant abnormality. PERITONEUM: No free fluid. No free air. No fluid collection. LYMPH NODES: No significant adenopathy. AORTA / ARTERIES: No significant abnormality. IVC / VEINS: No significant abnormality. URINARY BLADDER: No significant abnormality. REPRODUCTIVE ORGANS: No significant abnormality. ADDITIONAL FINDINGS: None. SKELETAL SYSTEM: No significant abnormality. IMPRESSION: Mildly obstructive 4 mm distal left ureteral stone. - Medical Decision Making Patient is a 30-year-old white female with no past medical history presents to the ED with complaint of acute onset persistent severe left lower quadrant pain that radiates to the left flank with urinary frequency and urgency for the last 2 days, worse in the last 12 hours. Patient states that the pain has been constant and persistent, sharp with occasional cramping. Patient denies nausea, vomiting, diarrhea, vaginal bleeding, vaginal discharge, traumatic injury, fall, constipation, cough, low back pain, fever, chills, chest pain or shortness of breath. She states there is mild dysuria without hematuria Physical exam done post CT scanning and is normal. Patient states pain stopped after CT. CT shows left mildly obstructive 4 mm ureteral stone with mild hydronephrosis. No UTI noted. Vitals normal on repeat. Patient states she no longer has any pain at this time. Will discharge home with expectorant treatment for stone passage. Patient to follow-up with PCP and urology. D iscussed signs and symptoms that should prompt immediate return to the emergency department in detail with patient who verbalizes understanding. She is well- appearing and stable for discharge home. Critical care attestation.: If time is entered above; I have spent that time in minutes in the direct care of this critically ill patient, excluding procedure time. ED Disposition Clinical Impression: Calculus of left kidney Disposition: - TO HOME OR SELFCARE Is pt being admited?: No Condition: Stable Instructions: Abdominal Pain (ED), Kidney Stones, Dietary Guidelines to Help Prevent Kidney Stones Prescriptions: Tamsulosin [Flomax] 0.4 mg PO QDAY 3 Days #3 cap HYDROcodone/APAP 10-325 [[place] 10-325 mg TAB] 1 each PO Q6HR PRN #10 tablet PRN Reason: Pain Ondansetron [Zofran Odt] 4 mg PO Q8HR PRN #15 tab.rapdis PRN Reason: Nausea Referrals: JODI HARRELL MD [Staff Physician] - 3-5 Days [facility] [Provider Group] - 3-5 Days
[2021-03-06 08:29] VITALS: BP 130/83
== END 2021-03-06 08:35 | disposition home or self-care (01) ==
LOC: ED 02:17
DX: N20.0 Calculus of kidney (principal); Z98.890 Other specified postprocedural states; Z87.891 Personal history of nicotine dependence; Z79.899 Other long term (current) drug therapy; Z88.8 Allergy status to other drugs, medicaments and biological substances
CPT/HCPCS: 36415; 74177; 80053; 81001; 81025; 83690; 85025; 99284; Q9967